=== PATIENT | female | born 1990 | race African-American/Black ===

== ENCOUNTER 2019-10-09 18:45 | Emergency (ER) | payer SELFPAY ==
[2019-10-09 18:58] VITALS: BP 136/77; PULSE 99; RESP 16; TEMP 37.6; O2SAT 100
--- NOTE | 2019-10-09 19:06 | ED.URI ---
HPI - URI/Sore Throat General Chief Complaint: Upper Respiratory Infection Stated Complaint: Sore throat Time Seen by Provider: 10/09/19 19:08 Source: patient and RN notes reviewed History of Present Illness HPI Narrative: Patient is a 28-year-old female presents the urgent care with complaints of sore throat and white patches for 1 day. Patient states that it hurts to swallow. States that she has history of recurrent strep. Patient denies any diagnoses of strep within the last 6 months. Patient has not taken anything [id number] with the exception of cough drops. Currently denies any fever, chills, nausea, vomiting. No other acute complaints. No acute distress noted. Patient aware the plan of care. Related Data Allergies Allergy/AdvReac Type Severity Reaction Status Date / Time No Known Allergies Allergy Verified 10/09/19 19:04 Review of Systems Review of Systems: Narrative: CONSTITUTIONAL: Denies fever, chills, or sweats. EYES: Denies visual changes, redness, or discharge. ENT: Reports of sore throat and white patches CARDIOVASCULAR: Denies chest pain, palpitations, or edema. RESPIRATORY: Denies cough or dyspnea. GASTROINTESTINAL: Denies abdominal pain, nausea, vomiting, or diarrhea. GENITOURINARY: Denies dysuria or hematuria. SKIN: Denies rash or itching. MUSCULOSKELETAL: Denies back pain, joint pain, or myalgia. NEUROLOGIC: Denies headache, numbness, or weakness. All other systems reviewed are negative, except as documented in HPI. PMFSH Social History Social History Gender identity (if verbalized by the patient): Female Comments At the time of my signature, I reviewed and agree with the nursing past medical, surgical, social, and family history. There is no relevant family history pertinent to the patient complaint. Exam Narrative: Exam Narrative: GENERAL: This is a well-nourished, well-developed patient, in no apparent distress. HEAD: normocephalic, atraumatic. EYES: PERRL. Sclera clear/white. Vision is grossly intact. EARS: External ears normal, auditory canals clear and without drainage, TMs normal without perforation. Hearing grossly intact. NOSE: External nose normal with no obvious nasal discharge, nares without redness, no rhinorrhea. THROAT: Mucous membranes moist, moderate erythema noted the posterior oropharynx with mild to moderate bilateral tonsillar edema and erythema with bilateral moderate exudate NECK: Neck supple, non-tender without lymphadenopathy CARDIOVASCULAR: Regular rate and rhythm without murmurs, gallops, or rubs. RESPIRATORY: Clear to auscultation. Breath sounds equal bilaterally. No wheezes, rales, or rhonchi. SKIN: warm, intact with no suspicious lesions or rash, good texture and turgor. NEURO: awake, alert, and oriented to person, place and time. There were no obvious focal neurologic abnormalities. EXTREMITIES: No clubbing, cyanosis, or edema. Course Vital Signs Vital signs: Vital Signs Temperature 99.7 F H 10/09/19 18:58 Pulse Rate 99 10/09/19 18:58 Respiratory Rate 16 10/09/19 18:58 Blood Pressure 136/77 10/09/19 18:58 Pulse Oximetry 100 10/09/19 18:58 Temperature 99.7 F H 10/09/19 18:58 Pulse Rate 99 10/09/19 18:58 Respiratory Rate 16 10/09/19 18:58 Blood Pressure 136/77 10/09/19 18:58 Pulse Oximetry 100 10/09/19 18:58 Reviewed MDM - URI/Sore Throat MDM Narrative Medical decision making narrative: Reviewed lab results with patient. She is aware that her strep swab is negative. However, due to presentation will treat patient for possible strep and tonsillitis. Advised the patient to complete antibiotic regimen as prescribed. Make sure to eat and drink with the medication. Increase fluids and rest. Use Tylenol/ibuprofen as needed. Follow-up with PCP within 2 to 5 days or for worsening symptoms or failure to improve. Differential Diagnosis Differential diagnosis: Likely upper respiratory infection, otitis media, sinusitis, viral i
== END 2019-10-09 19:30 | disposition home or self-care (01) ==
PROVIDERS: Emergency Provider Nurse Practitioner Family
DX: J02.9 Acute pharyngitis, unspecified (principal)
CPT/HCPCS: 87081; 87880; 99213; G0463

== ENCOUNTER 2020-05-13 15:31 | Outpatient (RCR) | payer OTHER, SELFPAY ==
[2020-05-13 16:22] VITALS: BP 128/75; PULSE 69
== END 2020-06-01 12:53 | disposition home or self-care (01) ==
LOC: ANHOBOP 15:31
PROVIDERS: Visit Provider Obstetrics & Gynecology
DX: O24.419 Gestational diabetes mellitus in pregnancy, unspecified control (principal); Z3A.00 Weeks of gestation of pregnancy not specified
CPT/HCPCS: 59025

== ENCOUNTER 2020-05-31 18:22 | Inpatient (IN) | payer OTHER, SELFPAY ==
[2020-05-31] VITALS (30 sets, daily range): BP systolic 88–168; BP diastolic 49–100; PULSE 77–104; TEMP 37
[2020-05-31 16:00] LABS: Creatinine Urine 49.4 mg/dL; Total Protein Urine Random 11 mg/dL
[2020-05-31 16:07] LABS: Add Urine Microscopic? YES; Appearance Urine Clear (Clear); Bacteria Urine Trace /hpf; Bilirubin Urine Negative (Negative); Blood Urine Negative (Negative); Color Urine Straw (Yellow); Glucose Urine UA Negative (Negative); Ketones Urine Negative (Negative); Leukocyte Esterase Ur Trace LEU/UL (NEGATIVE); Nitrate Urine Negative (Negative); Protein Urine Negative (Negative); RBC Urine 0-2 /hpf (0-2); Specific Grav Ur 1.006 (1.001-1.035); Squamous Epithelial Cell Urine Few /hpf (Few); Urobilinogen Urine Negative mg/dL (<2.0); WBC Urine 0-3 /hpf (0-3)
[2020-05-31 16:23] LABS: Basophils Percent Auto 0.3 % (0.2-1.2); Eosinophils Absolute Auto 0.2 K/mm3 (0-0.3); Eosinophils Percent Auto 1.5 % (0-4.4); Hematocrit 40.3 % (37.0-47.0); Hemoglobin 13.1 g/dL (12.0-15.0); Immature Granulocyte Absolute 0.05 K/mm3 (0.00-0.031); Immature Granulocyte Percent A 0.4 % (0-0.5); Immature Platelet Fraction Pct 5.7 % (0.9-11.2); Lymphocytes Absolute Auto 2.45 K/mm3 (0.9-3.2); Lymphocytes Percent Auto 21.5 % (18.3-44.2); Mean Corpuscular HGB Conc 32.5 g/dl (32-36); Mean Corpuscular Hemoglobin 27.2 pg (26-34); Mean Corpuscular Volume 83.8 fl (80-100); Mean Platelet Volume 10.8 fl (7.4-10.4); Monocytes Absolute Auto 0.5 K/mm3 (0.1-0.6); Monocytes Percent Auto 4.5 % (2.6-8.5); Neutrophils Absolute Auto 8.2 K/mm3 (1.3-6.7); Neutrophils Percent Auto 71.8 % (45.5-73.1); Platelet Count Result 204 k/mm3 (150-375); Red Blood Count 4.81 M/mm3 (4.2-5.4); Red Cell Distribution Width 14.1 % (11.5-14.5); White Blood Count 11.4 K/mm3 (4.5-10.0)
[2020-05-31 16:35] LABS: Alanine Aminotransferase 23 U/L (4-35); Albumin Level 3.5 g/dL (3.5-5.1); Alkaline Phosphatase 147 U/L (38-126); Anion Gap 8 mmol/L (8-16); Aspartate Amino Transferase 31 U/L (14-36); Bilirubin,Total 0.5 mg/dL (0.2-1.3); Blood Urea Nitrogen 7 mg/dL (7-17); Calcium 9.1 mg/dL (8.4-10.2); Carbon Dioxide 23 mmol/L (22-30); Chloride 106 mmol/L (98-107); Estimated Glomerular Filt Rate > 60; Glucose 84 mg/dL (65-105); Potassium 4.1 mmol/L (3.4-5.0); Sodium 137 mmol/L (137-145); Uric Acid 5.5 mg/dL (2.5-7.5)
--- NOTE | 2020-05-31 17:42 | PC.NURSE ---
1709- Spoke with Austin Guajardo CNM, reviewed BPS's and labs. Continue to watch BP's until 1800, will come by to see patient and determine plan of care.
--- NOTE | 2020-05-31 18:32 | WPDOBADMIT ---
Obstetrics - Admit Note Admission Note: record reviewed. No pertinent additions to the history and/or any subsequent changes in the physical findings that are not consistent with the expected course of the were found. hx of chtn, labs wnl, asymptomatic, but has had severe range pressures, will induce for preeclampsia discussed with pt and will plan cervadil Additions to the history and/or subsequent changes in the physical findings follow. None.
[2020-05-31] MEDS: DINOPROSTONE 10 MG VAG INSERT VAGINAL (20:34)
[2020-06-01] VITALS (140 sets, daily range): BP systolic 90–177; BP diastolic 47–113; PULSE 51–200; RESP 17; TEMP 36.2–36.7; O2SAT 99–100; BMI 38.7
--- NOTE | 2020-06-01 02:42 | LDADM ---
This patient, Radu Cesar, was admitted to Labor/Delivery/Recovery 106 on 05/31/20 at 18:22. Plans for labor, pain management and were discussed with patient. Patient/family oriented to hospital policies and general routines including ID bracelet, bed and alarms, visiting hours, pain management, procedures, bathroom and other care routines, personal items, smoking policy, room service/diet and guest tray routines, security routines, and visiting hours. Patient/Family are encouraged to report perceived risks to care and to ask questions if they do not understand what they are told or what they should do. See OBIX for further documentation.
[2020-06-01] MEDS: LACTATED RINGERS 1,000 ML 125 ML IV CONT ×2 (05:22→11:06)
[2020-06-01] MEDS: OXYTOCIN 30 UNITS/NS 500 ML 30 UNITS/500 ML BAG 6 UNITS IV CONT (05:23)
--- NOTE | 2020-06-01 08:22 | PM.IMHP ---
H&P: HPI History of Present Illness Date/Time: 06/01/20 08:22 Chief complaint: PIH Narrative: Radu Cesar is a 29 year old female sent over for induction d/t gestational hypertension. Cervidil was placed last night and removed for nrfht. This morning FHR in stable with good variability and occasional late decelerations. Review of Systems Review of Systems: All systems reviewed & are unremarkable except as noted in HPI and below PMFSH Family History Family History Other No pertinent family history Social History Social History Smoking status: Never smoker Second hand tobacco smoke exposure: No Substance use: never Gender identity (if verbalized by the patient): Female Sexual Orientation (if Verbalized by the Patient): Straight or Heterosexual Spiritual care concerns: No Meds Home Medications and Allergies Home Medications Medication Instructions Recorded Confirmed Type PNV cmb#95-ferrous fumarate-FA 1 tablet PO DAILY 05/18/20 05/31/20 History [] Allergies Allergy/AdvReac Type Severity Reaction Status Date / Time No Known Allergies Allergy Verified 10/09/19 19:04 Vital Signs Vital Signs - 24 hr 05/31/20 15:31 05/31/20 16:31 05/31/20 16:47 Temperature Pulse Rate 95 93 104 H Blood Pressure 147/80 H 160/100 H 165/63 H 05/31/20 16:50 05/31/20 16:51 05/31/20 17:01 Temperature Pulse Rate 100 77 91 Blood Pressure 168/85 H 162/88 H 149/81 H 05/31/20 17:16 05/31/20 17:46 05/31/20 18:01 Temperature Pulse Rate 101 H 95 81 Blood Pressure 161/96 H 156/80 H 153/72 H 05/31/20 18:16 05/31/20 18:31 05/31/20 18:46 Temperature Pulse Rate 89 85 79 Blood Pressure 141/81 H 149/78 H 141/74 H 05/31/20 19:01 05/31/20 19:16 05/31/20 19:31 Temperature Pulse Rate 85 78 87 Blood Pressure 140/74 140/64 124/57 L 05/31/20 19:46 05/31/20 20:37 05/31/20 20:52 Temperature 98.6 F Pulse Rate 89 99 Blood Pressure 114/65 141/81 H 05/31/20 21:01 05/31/20 21:16 05/31/20 21:46 Temperature Pulse Rate 97 104 H 102 H Blood Pressure 141/76 H 134/74 88/68 L 05/31/20 21:49 05/31/20 22:01 05/31/20 22:16 Temperature Pulse Rate 100 97 93 Blood Pressure 119/66 119/58 L 119/55 L 05/31/20 22:41 05/31/20 22:46 05/31/20 23:01 Temperature Pulse Rate 88 87 98 Blood Pressure 132/74 136/70 112/63 05/31/20 23:16 05/31/20 23:31 05/31/20 23:46 Temperature Pulse Rate 84 87 78 Blood Pressure 128/79 123/49 L 127/70 06/01/20 00:01 06/01/20 00:16 06/01/20 00:32 Temperature Pulse Rate 85 156 H 81 Blood Pressure 125/71 106/89 129/75 06/01/20 00:45 06/01/20 01:01 06/01/20 01:16 Temperature 97.8 F Pulse Rate 86 86 Blood Pressure 112/51 L 100/48 L 06/01/20 01:31 06/01/20 01:46 06/01/20 02:01 Temperature Pulse Rate 90 87 84 Blood Pressure 95/58 L 112/51 L 90/60 L 06/01/20 02:16 06/01/20 02:46 06/01/20 03:01 Temperature Pulse Rate 90 79 81 Blood Pressure 116/55 L 94/49 L 112/50 L 06/01/20 03:16 06/01/20 03:31 06/01/20 03:46 Temperature Pulse Rate 79 79 84 Blood Pressure 120/61 110/47 L 114/64 06/01/20 04:01 06/01/20 04:16 06/01/20 04:31 Temperature Pulse Rate 82 81 78 Blood Pressure 113/55 L 107/54 L 122/50 L 06/01/20 04:46 06/01/20 05:01 06/01/20 05:16 Temperature Pulse Rate 76 101 H 79 Blood Pressure 122/56 L 102/71 116/66 06/01/20 05:31 06/01/20 05:46 06/01/20 06:01 Temperature Pulse Rate 90 91 95 Blood Pressure 116/55 L 124/61 130/63 06/01/20 06:15 06/01/20 06:16 06/01/20 06:31 Temperature 97.2 F L Pulse Rate 97 90 Blood Pressure 127/58 L 133/71 06/01/20 07:01 06/01/20 07:31 06/01/20 08:14 Temperature Pulse Rate 90 90 88 Blood Pressure 122/72 119/56 L 147/79 H Exam Const: General: comfortable and no acute distress Resp: Effor
[2020-06-01 08:53] LABS: Rapid Plasma Reagin Non-Reactive (NonReactive)
--- NOTE | 2020-06-01 11:03 | WPDANESEPP ---
Anes - Eval Pre Procedure Procedure: labor epidural Date/Time: 06/01/20 11:03 Surgeon: sisi Preop Diagnosis: pain during labor Pre Op Diagnosis: PIH Patient Data Age: 29 Gender: F Height: Weight: Last Vital Signs Temp 36.4 C L 06/01/20 10:51 Pulse 76 06/01/20 11:01 BP 131/65 06/01/20 11:01 Pulse Ox 99 06/01/20 11:00 Allergies Allergy/AdvReac Type Severity Reaction Status Date / Time No Known Allergies Allergy Verified 10/09/19 19:04 Home Medications Medication Instructions Recorded Confirmed Type PNV cmb#95-ferrous fumarate-FA 1 tablet PO DAILY 05/18/20 05/31/20 History [] Laboratory Tests 05/31/20 05/31/20 05/31/20 15:38 15:38 15:38 WBC 11.4 K/mm3 H K/mm3 (4.5-10.0) RBC 4.81 M/mm3 M/mm3 (4.2-5.4) Hgb 13.1 g/dL g/dL (12.0-15.0) Hct 40.3 % % (37.0-47.0) MCV 83.8 fl fl (80-100) MCH 27.2 pg pg (26-34) MCHC 32.5 g/dl g/dl (32-36) RDW 14.1 % % (11.5-14.5) Plt Count 204 k/mm3 k/mm3 (150-375) MPV 10.8 fl H fl (7.4-10.4) Immature Gran % (Auto) 0.4 % % (0-0.5) Neut % (Auto) 71.8 % % (45.5-73.1) Lymph % (Auto) 21.5 % % (18.3-44.2) Sharp % (Auto) 4.5 % % (2.6-8.5) Eos % (Auto) 1.5 % % (0-4.4) Baso % (Auto) 0.3 % % (0.2-1.2) Lymph # (Auto) 2.45 K/mm3 K/mm3 (0.9-3.2) Sharp # (Auto) 0.5 K/mm3 K/mm3 (0.1-0.6) Eos # (Auto) 0.2 K/mm3 K/mm3 (0-0.3) Baso # (Auto) 0.0 K/mm3 K/mm3 (0.0-0.1) Abs Immat Gran (auto) 0.05 K/mm3 H K/mm3 (0.00-0.031) Absolute Neuts (auto) 8.2 K/mm3 H K/mm3 (1.3-6.7) Absolute Nucleated RBC 0.0 K/mm3 K/mm3 (0.0-0.012) Nucleated RBC % 0.0 % % (0.0-0.2) % Immature Plt Fraction 5.7 % % (0.9-11.2) Sodium Potassium Chloride Carbon Dioxide Anion Gap BUN Creatinine Estim Creat Clear Calc Estimated GFR Glucose Uric Acid Calcium Total Bilirubin AST ALT Alkaline Phosphatase Total Protein Albumin Urine Color Straw (Yellow) Urine Appearance Clear (Clear) Urine pH 6.0 (5.0-9.0) Ur Specific [place] 1.006 (1.001-1.035) Urine Protein Negative mg/dL mg/dL (Negative) Urine Glucose (UA) Negative mg/dL mg/dL (Negative) Urine Ketones Negative mg/dL mg/dL (Negative) Ur Blood (Man) Negative (Negative) Urine Nitrate Negative (Negative) Urine Bilirubin Negative (Negative) Urine Urobilinogen Negative mg/dL mg/dL (<2.0) Ur Leukocyte Esterase Trace ADY/UL H ADY/UL (NEGATIVE) Urine RBC 0-2 /hpf /hpf (0-2) Urine WBC 0-3 /hpf /hpf (0-3) Ur Squamous Epith Cells Few /hpf /hpf (Few) Urine Bacteria Trace /hpf /hpf U Random Total Protein 11 mg/dL mg/dL Urine Creatinine 49.4 mg/dL mg/dL RPR Blood Type Antibody Screen 05/31/20 05/31/20 05/31/20 15:38 20:26 20:26 WBC RBC Hgb Hct MCV MCH MCHC RDW Plt Count MPV Immature Gran % (Auto) Neut % (Auto) Lymph % (Auto) Sharp % (Auto) Eos % (Auto) Baso % (Auto) Lymph # (Auto) Sharp # (Auto) Eos # (Auto) Baso # (Auto) Abs Immat Gran (auto) Absolute Neuts (auto) Absolute Nucleated RBC Nucleated RBC % % Aneglita
--- NOTE | 2020-06-01 15:45 | PM.OBPRVD ---
OB - Delivery Note Procedure Delivery date: 06/01/20 events: Induced HTN and Meconium Stained Fluid Intrapartal events: None Induction method: per cervidil protocol Delivery monitor: external FHT, external uterine, internal FHT and internal uterine Route of delivery: Episiotomy description: None Laceration Description: Vaginal - 1st Degree and Labial (1st degree right labial) Delivery repair: vicryl Specimen: Yes Estimated blood loss (mL): 122 Anesthesia type: Epidural Narrative: Delivery per Z. Due SNM. Peds present for delivery. vigorous at delivery. Cord was clamped and cut and handed off to staff d/t pt request. Cord gasses collected and handed off to staff. Minimal arterial and 1cc venous. [place] Baby Date of : 06/01/20 Time of : 15:18 Weeks of gestation at delivery: 37 Infant gender: Male Weight (pounds): 5 Weight (ounces): 2 presentation: vertex position: Left Occiput Anterior Placenta delivery description: Spontaneous and Abnormal Configuration cord vessel description: 3 Vessels score one minute: 9 score five minutes: 9
[2020-06-01] MEDS: OXYTOCIN 30 UNITS/NS 500 ML 30 UNITS/500 ML BAG 125 UNITS IV CONT (16:11)
[2020-06-01] MEDS: OXYTOCIN 30 UNITS/NS 500 ML 30 UNITS/500 ML BAG 999 UNITS IV CONT (16:12)
[2020-06-01] MEDS: IBUPROFEN 600 MG TABLET PO (18:58)
[2020-06-01] MEDS: WITCH HAZEL 40 PADS 1 PAD TOPICAL (18:59)
[2020-06-01] MEDS: BENZOCAINE 20% AER SPR (*SP) 56 GM CAN 1 SPRAY TOPICAL (18:59)
--- NOTE | 2020-06-01 19:21 | OBPPTRN ---
Patient transferred to post room #285 via wheelchair with in crib. Support person present. Oriented to unit, room, information board, rooming in, admission packet and security measures. Patient verbalizes understanding.
[2020-06-02 05:30] LABS: Hemoglobin 9.3 g/dL (12.0-15.0)
--- NOTE | 2020-06-02 07:30 | WPDANLDPN2 ---
Anes-Prog Note L&D Date/Time: 06/02/20 07:30 Comfortable throughout: labor and delivery Neuraxial method: epidural Epidural/Spinal procedure site: clean & non-tender Neuro status: Neuro function grossly intact. Cardiovascular status: normal Respiratory status: normal Airway patency: baseline Mental status: baseline Post-Op hydration status: normal Vital Signs: Last Vital Signs Temp 36.7 C 06/01/20 19:35 Pulse 90 06/01/20 19:35 Resp 17 06/01/20 19:35 BP 131/79 06/01/20 19:35 Pulse Ox 100 06/01/20 15:00 Pain score (VAS): 08/07 I/O: Intake & Output 06/01/20 06/01/20 06/02/20 15:59 23:59 07:59 Intake Total 1000 500 Output Total 55 Balance 1000 500 -55 Post-procedural complaints: none Patient feedback: Patient satisfied with anesthetic care.
[2020-06-02 07:50] VITALS: BP 121/56; PULSE 92; RESP 16; TEMP 36.4; O2SAT 98
--- NOTE | 2020-06-02 08:00 | PC.NURSE ---
PT introductions made and plan of care discussed per post , pain management, bottle feeding, daily care activities. PT verbalized understanding of such care.
--- NOTE | 2020-06-02 08:09 | PM.OBPNVD ---
OB - PN: Subj Subjective Date/time seen: 06/02/20 08:09 Patient comments: no complaints baby status: doing well OB - PN: Obj Data Labs CBC & Chem 7: 06/02/20 05:23 05/31/20 15:38 Labs: Laboratory Results - last 24 hr 05/31/20 06/02/20 20:26 05:23 Hgb 9.3 L D Hct 29.0 L RPR Non-reactive OB - PN A/P Plan day: 1 Plan: routine care Time Spent With Patient Time: Total time spent is greater than 50% in coordination of care (as documented) at patient's floor/unit and/or counseling patient: Time with patient: less than 15 minutes Review of Systems Review of Systems: All systems reviewed & are unremarkable except as noted in HPI and below Exam Narrative: Exam Narrative: Fundus firm and vaginal flow controlled. No lower ext redness, warmth, or edema. Negative homans. Denies h/a, v/d or e/p. Reflexes normal. Const: General: comfortable Chest: Breast/axilla inspection: normal inspection of the breasts Resp: Effort & Inspection: normal respiratory effort Cardio: Rate: regular rate GI: GI Palp: Yes Soft to palpation Psych: Appearance: grossly normal Affect: normal affect Attitude: cooperative Thought content: Yes Normal thought content present Judgement: Good judgement present (Psych)
[2020-06-02 10:30] VITALS: PULSE 92; RESP 16; O2SAT 98
[2020-06-02] MEDS: DOCUSATE SODIUM 100 MG CAPSULE PO ×2 (10:36→17:04)
[2020-06-02] MEDS: POLYSACCHARIDE IRON COMPLEX 150 MG CAPSULE PO ×2 (10:37→17:04)
[2020-06-02] MEDS: MULTIVIT/MIN/PREN/FOL AC/IRON TABLET 1 TAB PO (10:37)
[2020-06-02] MEDS: IBUPROFEN 600 MG TABLET PO ×2 (10:37→17:03)
[2020-06-02] MEDS: ACETAMINOPHEN 325 MG TABLET 650 MG PO ×2 (10:38→17:03)
--- NOTE | 2020-06-02 17:45 | PC.NURSE ---
Patient viewed the discharge video Mother & Baby Care, The First Two Weeks . Patient was given the opportunity and encouraged to ask questions. Patient verbalized understanding of information shared and has been given the mother/baby guide for home reference.
[2020-06-02 20:10] VITALS: BP 140/86; PULSE 93; RESP 16; TEMP 36.7
[2020-06-03] MEDS: IBUPROFEN 600 MG TABLET PO (03:10)
[2020-06-03] MEDS: ACETAMINOPHEN 325 MG TABLET 650 MG PO (03:10)
--- NOTE | 2020-06-03 07:39 | PM.OBPNVD ---
OB - PN: Subj Subjective Date/time seen: 06/03/20 07:39 Patient comments: no complaints baby status: doing well OB - PN: Obj Data Labs CBC & Chem 7: 06/02/20 05:23 05/31/20 15:38 OB - PN A/P Plan day: 2 Plan: routine care and discharge home Time Spent With Patient Time: Total time spent is greater than 50% in coordination of care (as documented) at patient's floor/unit and/or counseling patient: Exam Const: General: cooperative Psych: Thought process: Normal thought process present Judgement: Good judgement present (Psych)
--- NOTE | 2020-06-03 07:41 | PM.OBDSVD ---
DS: Admitting Diagnosis Admitting Diagnosis Admitting Diagnosis: [facility] OB - DS: Summary OB Procedures : None OB Procedures Intrapartum: Spontaneous Vag Delivery OB Procedures: : None Time Spent with Patient Time attestation: Total time spent providing and/or coordinating discharge services: DS: Data Data Completed and Pending Pending studies at discharge: Pending at discharge 06/01/20 16:41 Surgical [PTH] Routine Discharge Plan Discharge Attending physician on discharge: Allison Arroyo Discharging Clinician: Consuelo Guajardo Patient Disposition: Home, Self-Care Activity: pelvic rest Diet: regular Patient Instructions: Antibiotic Form Stand Alone Forms: General Discharge Information Follow-up/Referrals: Patricia Peña CNM [Certified Nurse [employer] Dress Belt Maker] - 4 Weeks Consuelo Guajardo CNM [Certified Nurse [employer] Dress Belt Maker] - Discharge Medications: Continued PNV cmb#95-ferrous fumarate-FA [] 28 mg iron- 800 mcg Tablet 1 tablet PO DAILY RF: 0 Date of admission: 05/31/20 18:22 Primary Care Provider: UNKNOWN,DOCTOR Admitting Provider: Allison Arroyo Attending physician on admission: Allison Arroyo Condition: Stable
[2020-06-03 07:55] VITALS: BP 153/81; PULSE 92; RESP 16; TEMP 36.4; O2SAT 99
[2020-06-03] MEDS: BENZOCAINE 20% AER SPR (*SP) 56 GM CAN 1 SPRAY TOPICAL (08:23)
[2020-06-03] MEDS: WITCH HAZEL 40 PADS 1 PAD TOPICAL (08:23)
[2020-06-03] MEDS: POLYSACCHARIDE IRON COMPLEX 150 MG CAPSULE PO (08:23)
[2020-06-03] MEDS: DOCUSATE SODIUM 100 MG CAPSULE PO (08:23)
[2020-06-04 09:38] VITALS: BP 143/83; PULSE 92; RESP 20; TEMP 36.6; O2SAT 100
== END 2020-06-03 12:00 | disposition home or self-care (01) | DRG 560 ==
LOC: ANHOBOP 18:22 → ANHLDR 18:22 → ANHOB2 06-01 19:54
PROVIDERS: Advanced Practice Midwife; Admitting Provider Obstetrics & Gynecology; Visit Provider Obstetrics & Gynecology
DX: O11.4 Pre-existing hypertension with pre-eclampsia, complicating childbirth (principal); Z37.0 Single live birth; Z3A.37 37 weeks gestation of pregnancy; O36.8330 Maternal care for abnormalities of the fetal heart rate or rhythm, third trimester, not applicable or unspecified; O70.1 Second degree perineal laceration during delivery; O99.214 Obesity complicating childbirth; E66.01 Morbid (severe) obesity due to excess calories; O77.0 Labor and delivery complicated by meconium in amniotic fluid
CPT/HCPCS: 36415; 80053; 81001; 82570; 84156; 84550; 85014; 85018; 85025; 85055; 86592; 86850; 86900; 86901; 87086; 88307; A9270; J2590; J2795; J7120

== ENCOUNTER 2021-07-04 10:02 | Outpatient (CLI) | payer OTHER, SELFPAY ==
[2021-07-04] VITALS (7 sets, daily range): BP systolic 136–150; BP diastolic 49–72; PULSE 88–105
[2021-07-04 10:58] LABS: Basophils Percent Auto 0.4 % (0.2-1.2); Eosinophils Absolute Auto 0.2 K/mm3 (0-0.3); Eosinophils Percent Auto 1.5 % (0-4.4); Hematocrit 35.1 % (37.0-47.0); Hemoglobin 11.5 g/dL (12.0-15.0); Immature Granulocyte Absolute 0.12 K/mm3 (0.00-0.031); Immature Granulocyte Percent A 1.1 % (0-0.5); Lymphocytes Absolute Auto 2.11 K/mm3 (0.9-3.2); Lymphocytes Percent Auto 19.1 % (18.3-44.2); Mean Corpuscular HGB Conc 32.8 g/dl (32-36); Mean Corpuscular Hemoglobin 27.8 pg (26-34); Mean Corpuscular Volume 84.8 fl (80-100); Mean Platelet Volume 10.5 fl (7.4-10.4); Monocytes Absolute Auto 0.5 K/mm3 (0.1-0.6); Monocytes Percent Auto 4.4 % (2.6-8.5); Neutrophils Absolute Auto 8.1 K/mm3 (1.3-6.7); Neutrophils Percent Auto 73.5 % (45.5-73.1); Platelet Count Result 253 k/mm3 (150-375); Red Blood Count 4.14 M/mm3 (4.2-5.4); Red Cell Distribution Width 15.5 % (11.5-14.5)
[2021-07-04 11:14] LABS: Add Urine Microscopic? YES; Appearance Urine Clear (Clear); Bilirubin Urine Negative (Negative); Blood Urine Negative (Negative); Color Urine Straw (Yellow); Glucose Urine UA Negative (Negative); Ketones Urine Negative (Negative); Leukocyte Esterase Ur Trace LEU/UL (NEGATIVE); Nitrate Urine Negative (Negative); Protein Urine Negative (Negative); RBC Urine 0-2 /hpf (0-2); Squamous Epithelial Cell Urine Rare /hpf (Few); Urobilinogen Urine Negative mg/dL (<2.0); WBC Urine 0-3 /hpf (0-3)
[2021-07-04 11:17] LABS: Alanine Aminotransferase 17 U/L (4-35); Albumin Level 3.6 g/dL (3.5-5.1); Alkaline Phosphatase 131 U/L (38-126); Anion Gap 8 mmol/L (8-16); Aspartate Amino Transferase 26 U/L (14-36); Bilirubin,Total 0.4 mg/dL (0.2-1.3); Blood Urea Nitrogen 6 mg/dL (7-17); Calcium 8.7 mg/dL (8.4-10.2); Carbon Dioxide 23 mmol/L (22-30); Chloride 101 mmol/L (98-107); Estimated Glomerular Filt Rate > 60; Glucose 96 mg/dL (65-110); Potassium 3.6 mmol/L (3.4-5.0); Sodium 132 mmol/L (137-145); Uric Acid 4.9 mg/dL (2.5-7.5)
--- NOTE | 2021-07-04 11:45 | PC.NURSE ---
Waiting for urine results to come back.
[2021-07-04 12:01] LABS: Specific Grav Ur 1.001 (1.001-1.035)
--- NOTE | 2021-07-04 12:03 | PC.NURSE ---
Called Dadnre Peña CNM with lab results, BPs and FHTs. Orders received to start 24hr urine and follow up in office on Saturday.
[2021-07-04 12:26] LABS: Creatinine Urine 18.9 mg/dL; Total Protein Urine Random 13 mg/dL; Ur Ttl Prot Creatinine Ratio 0.69 mg/mg (0-0.20)
== END 2021-07-04 12:18 | disposition home or self-care (01) ==
LOC: ANHOBOP 10:12 → ANHOBPP 10:13
PROVIDERS: Advanced Practice Midwife; Visit Provider Obstetrics & Gynecology
DX: O13.5 Gestational [pregnancy-induced] hypertension without significant proteinuria, complicating the puerperium (principal)
CPT/HCPCS: 36415; 80053; 81001; 82570; 84156; 84550; 85025; 87086; 99199

== ENCOUNTER 2021-07-05 13:55 | Outpatient (CLI) | payer OTHER, SELFPAY ==
[2021-07-05 17:14] LABS: Collection Time Urine 24 HOURS
[2021-07-05 17:16] LABS: Patient Weight 282 Lbs; Total Volume 24 Hour Urine 1600 ml
[2021-07-05 17:21] LABS: Total Volume 24 Hour Urine 1600 ml
[2021-07-05 17:27] LABS: Creatinine Clearance Urine 147.8 ml/min (75-125); Creatinine Urine 106.4 mg/dL
[2021-07-05 18:02] LABS: Total Protein Urine Random < 5 mg/dL
[2021-07-05 18:03] LABS: Total Protein Urine 24 Hr 80 mg/24hr (28-141)
== END 2021-07-05 13:56 | disposition home or self-care (01) ==
LOC: ANHOBOP 14:59
PROVIDERS: Visit Provider Advanced Practice Midwife
DX: O13.9 Gestational [pregnancy-induced] hypertension without significant proteinuria, unspecified trimester (principal)
CPT/HCPCS: 81050; 82575; 84156

== ENCOUNTER 2021-09-21 07:00 | Inpatient (IN) | payer OTHER, SELFPAY ==
[2021-09-21] VITALS (50 sets, daily range): BP systolic 74–138; BP diastolic 32–110; PULSE 33–112; RESP 12–17; TEMP 36–37.1; O2SAT 77–100; BMI 47.8
[2021-09-21 07:30] LABS: Basophils Percent Auto 0.3 % (0.2-1.2); Eosinophils Absolute Auto 0.2 K/mm3 (0-0.3); Eosinophils Percent Auto 1.9 % (0-4.4); Hematocrit 37.2 % (37.0-47.0); Hemoglobin 12.3 g/dL (12.0-15.0); Immature Granulocyte Absolute 0.09 K/mm3 (0.00-0.031); Immature Granulocyte Percent A 0.8 % (0-0.5); Lymphocytes Absolute Auto 2.85 K/mm3 (0.9-3.2); Lymphocytes Percent Auto 25.8 % (18.3-44.2); Mean Corpuscular HGB Conc 33.1 g/dl (32-36); Mean Corpuscular Hemoglobin 28.7 pg (26-34); Mean Corpuscular Volume 86.7 fl (80-100); Mean Platelet Volume 10.4 fl (7.4-10.4); Monocytes Absolute Auto 0.5 K/mm3 (0.1-0.6); Monocytes Percent Auto 4.8 % (2.6-8.5); Neutrophils Absolute Auto 7.4 K/mm3 (1.3-6.7); Neutrophils Percent Auto 66.4 % (45.5-73.1); Platelet Count Result 243 k/mm3 (150-375); Red Blood Count 4.29 M/mm3 (4.2-5.4); Red Cell Distribution Width 14.6 % (11.5-14.5); White Blood Count 11.1 K/mm3 (4.5-10.0)
--- NOTE | 2021-09-21 07:35 | LDADM ---
This patient, Radu Cesar, was admitted to Labor/Delivery/Recovery 120 on 09/21/21 at 07:00. Plans for labor, pain management and were discussed with patient. Patient/family oriented to hospital policies and general routines including ID bracelet, bed and alarms, visiting hours, pain management, procedures, bathroom and other care routines, personal items, smoking policy, room service/diet and guest tray routines, security routines, and visiting hours. Patient/Family are encouraged to report perceived risks to care and to ask questions if they do not understand what they are told or what they should do. See OBIX for further documentation.
[2021-09-21 07:48] LABS: Alanine Aminotransferase 16 U/L (4-35); Albumin Level 3.4 g/dL (3.5-5.1); Alkaline Phosphatase 203 U/L (38-126); Anion Gap 5 mmol/L (8-16); Aspartate Amino Transferase 32 U/L (14-36); Bilirubin,Total 0.7 mg/dL (0.2-1.3); Blood Urea Nitrogen 7 mg/dL (7-17); Calcium 8.7 mg/dL (8.4-10.2); Carbon Dioxide 21 mmol/L (22-30); Chloride 108 mmol/L (98-107); Estimated CRCL calculation 166 ml/min; Estimated Glomerular Filt Rate > 60; Glucose 93 mg/dL (65-110); Potassium 3.8 mmol/L (3.4-5.0); Sodium 134 mmol/L (137-145); Uric Acid 5.4 mg/dL (2.5-7.5)
[2021-09-21] MEDS: LACTATED RINGERS 1,000 ML 125 ML IV CONT ×2 (07:57→11:12)
--- NOTE | 2021-09-21 07:58 | PM.IMHP ---
H&P: HPI History of Present Illness Date/Time: 09/21/21 07:58 This patient is a 30-year-old multiparous female at 38 weeks gestation who presents for delivery for twins. First twin is breech. Patient understands the risk of . She understands that injuries may occur that result in hospitalization, more surgery, severe illness. She understands risk of infection and hemorrhage. Chief Complaint: Term twin gestation Review of Systems Review of Systems: All systems reviewed & are unremarkable except as noted in HPI and below Constitutional: Constitutional: Denies chills, Denies fatigue, Denies fever(s) and Denies weakness Eyes: Eyes: Denies blurry vision, Denies change in vision, Denies loss of peripheral vision, Denies loss of vision, Denies other visual disturbances and Denies eye pain ENT: Denies vertigo, Denies dizziness, Denies hearing loss, Denies mouth pain, Denies nasal obstruction, Denies neck mass and Denies neck pain Cardiovascular: Cardiovascular: Denies chest pain, Denies diaphoresis, Denies syncope, Denies leg edema and Denies dyspnea Respiratory: Respiratory: Denies chest congestion, Denies cough, Denies hemoptysis, Denies dyspnea and Denies wheezing Gastrointestinal: Gastrointestinal: Denies abdominal pain, Denies constipation, Denies diarrhea, Denies nausea and Denies vomiting Genitourinary: Genitourinary: Denies hematuria, Denies change in libido, Denies nocturia, Denies genital lesions, Denies flank pain and Denies urinary urgency Musculoskeletal: Musculoskeletal: Denies abnormal gait, Denies back pain, Denies myalgias, Denies arthralgias, Denies joint swelling, Denies muscle weakness and Denies neck pain Integumentary/Breasts: Skin/Breast: Denies swelling, Denies breast pain, Denies breast mass, Denies dry skin, Denies nipple discharge, Denies unusual bruising and Denies jaundice Neurologic: Denies Neuro-related abnormal movements, Denies Abnormal speech present, Denies abnormal gait, Denies behavioral changes, Denies confusion, Denies vertigo, Denies dizziness, Denies syncope, Denies loss of vision, Denies memory loss, Denies convulsions and Denies weakness Psychiatric: Psychiatric: Denies abnormal sleep pattern, Denies behavioral changes, Denies change in libido, Denies confusion, Denies depression, Denies anhedonia and Denies memory loss Endocrine: Endocrine: Reports no additional endocrine complaints, Denies change in libido and Denies fatigue Hematologic/Lymphatic: Hematologic/Lymphatic: Reports no additional hematologic/lymphatic complaints Allergic/Immunologic: Allergic/Immunologic: Reports no additional allergic/immunologic complaints and Denies wheezing PMF Past Medical History Medical History (Updated 09/21/21 @ 08:00 by Allison Arroyo MD) Morbid obesity PIH ( induced hypertension) Family History Family History Other No pertinent family history Social History Social History Smoking status: Never smoker Second hand tobacco smoke exposure: No Substance use: never Gender identity (if verbalized by the patient): Female Sexual Orientation (if Verbalized by the Patient): Straight or Heterosexual Spiritual care concerns: No Meds Home Medications and Allergies Home Medications Medication Instructions Recorded Confirmed Type PNV cmb#95-ferrous fumarate-FA 1 tablet PO DAILY 05/18/20 05/31/20 History [] Allergies Allergy/AdvReac Type Severity Reaction Status Date / Time No Known Allergies Allergy Verified 10/09/19 19:04 Vital Signs Vital Signs - 24 hr 09/21/21 07:36 09/21/21 07:45 Pulse Rate 99 92 Blood Pressure 125/61 118/69 Exam Const: General: cooperative, healthy appearing, comfortable and no acute distress; No confusion Orientation/consciousness: oriented to person, oriented to place, oriented
--- NOTE | 2021-09-21 11:11 | WPDANESEPPF ---
Anes - Initial Pre Proc Eval Procedure: Operation Date: 09/21/21 12:00 Proposed Procedures p Section - Allison Arroyo MD Date/Time: 09/21/21 11:11 Surgeon: Allison Arroyo MD Pre Op Diagnosis: C/S TWINS Patient Data Age: 30 Gender: F Height: 1.68 m Weight: 134.5 kg Last Vital Signs Temp 37.1 C 09/21/21 08:00 Pulse 77 09/21/21 08:31 BP 112/47 L 09/21/21 08:31 Allergies Allergy/AdvReac Type Severity Reaction Status Date / Time No Known Allergies Allergy Verified 10/09/19 19:04 Home Medications Medication Instructions Recorded Confirmed Type PNV cmb#95-ferrous fumarate-FA 1 tablet PO DAILY 05/18/20 05/31/20 History [] Laboratory Tests 09/21/21 09/21/21 09/21/21 07:22 07:22 07:22 WBC 11.1 K/mm3 H K/mm3 (4.5-10.0) RBC 4.29 M/mm3 M/mm3 (4.2-5.4) Hgb 12.3 g/dL g/dL (12.0-15.0) Hct 37.2 % % (37.0-47.0) MCV 86.7 fl fl (80-100) MCH 28.7 pg pg (26-34) MCHC 33.1 g/dl g/dl (32-36) RDW 14.6 % H % (11.5-14.5) Plt Count 243 k/mm3 k/mm3 (150-375) MPV 10.4 fl fl (7.4-10.4) Immature Gran % (Auto) 0.8 % H % (0-0.5) Neut % (Auto) 66.4 % % (45.5-73.1) Lymph % (Auto) 25.8 % % (18.3-44.2) Frio % (Auto) 4.8 % % (2.6-8.5) Eos % (Auto) 1.9 % % (0-4.4) Baso % (Auto) 0.3 % % (0.2-1.2) Lymph # (Auto) 2.85 K/mm3 K/mm3 (0.9-3.2) Frio # (Auto) 0.5 K/mm3 K/mm3 (0.1-0.6) Eos # (Auto) 0.2 K/mm3 K/mm3 (0-0.3) Baso # (Auto) 0.0 K/mm3 K/mm3 (0.0-0.1) Abs Immat Gran (auto) 0.09 K/mm3 H K/mm3 (0.00-0.031) Absolute Neuts (auto) 7.4 K/mm3 H K/mm3 (1.3-6.7) Absolute Nucleated RBC 0.0 K/mm3 K/mm3 (0.0-0.012) Nucleated RBC % 0.0 % % (0.0-0.2) Sodium Potassium Chloride Carbon Dioxide Anion Gap BUN Creatinine Estim Creat Clear Calc Estimated GFR Glucose Uric Acid Calcium Total Bilirubin AST ALT Alkaline Phosphatase Total Protein Albumin RPR Pending Blood Type O Positive Antibody Screen Negative 09/21/21 09/21/21 07:22 07:22 WBC RBC Hgb Hct MCV MCH MCHC RDW Plt Count MPV Immature Gran % (Auto) Neut % (Auto) Lymph % (Auto) Frio % (Auto) Eos % (Auto) Baso % (Auto) Lymph # (Auto) Frio # (Auto) Eos # (Auto) Baso # (Auto) Abs Immat Gran (auto) Absolute Neuts (auto) Absolute Nucleated RBC Nucleated RBC % Sodium 134 mmol/L L mmol/L (137-145) Potassium 3.8 mmol/L mmol/L (3.4-5.0) Chloride 108 mmol/L H mmol/L (98-107) Carbon Dioxide 21 mmol/L L mmol/L (22-30) Anion Gap 5 mmol/L L mmol/L (8-16) BUN 7 mg/dL mg/dL (7-17) Creatinine 0.60 mg/dL L mg/dL (0.7-1.0) Estim Creat Clear Calc 166 ml/min ml/min Estimated GFR > 60 (59 - ) Glucose 93 mg/dL mg/dL (65-110) Uric Acid 5.4 mg/dL mg/dL Cancelled (2.5-7.5) Calcium 8.7 mg/dL mg/dL (8.4-10.2) Total Bilirubin 0.7 mg/dL mg/dL (0.2-1.3) AST 32 U/L U/L (14-36) ALT 16 U/L U/L (4-35) Alkaline Phosphatase 203 U/L H U/L (38-126) Total Protein 7.0 g/dL g/dL (6.3-8.2) Albumin 3.4 g/dL L g/dL (3.5-5.1) RPR Blood Type Antibody Screen Patient hx anesthesia problems: none Family hx anesthesia problems: none Results Review: All pr
[2021-09-21] MEDS: ceFAZolin 3 GM/D5W 100 ML 100 ML IVPB (12:15)
--- NOTE | 2021-09-21 13:18 | W.PM.PROC2 ---
Procedure Note - Detailed Date of Procedure 09/21/21 Pre-op Diagnosis C/S TWINS -Term Post-op Diagnosis same Procedure Performed Low-transverse section Surgeon Allison Arroyo MD Anesthesia spinal Indications Term twins Findings Normal gestational maternal anatomy, average size infant, normal Apgars. x2 Description of Procedure The patient was taken the operating room. She was prepped and draped in dorsal supine position with a leftward tilt. This was done after spinal anesthetic was applied. A low-transverse skin incision was made and carried down till of the fascia with the knife. The fascial incision was made with the knife. The fascial incision was extended laterally with Blackwell scissors. The fascia was tented upward superiorly and inferiorly the rectus muscles were dissected off bluntly. The rectus muscles were the midline. The preperitoneal fat and peritoneum were dissected open bluntly at the superior aspect of the rectus muscles. The peritoneal incision was extended superior and inferior with good position of bladder. The uterine incision was made with a scalpel down to the level of the amniotic cavity. The amniotic cavity was entered bluntly. The infant- A was delivered. The cord was clamped and cut and the was handed off to waiting pediatric staff. Cord bloods were obtained. The placenta was removed manually. baby was delivered. Cord was clamped and cut and the was handed off to the pediatric staff. The 1st baby delivered breech with no obstruction. The uterus was exteriorized. The uterus was cleared of all clots, debris and membranes. The uterus was closed in 0 Vicryl running lock fashion. An imbricating over a was placed along the incision line as well. The uterus was returned to the abdomen. The gutters were cleared of all clots and debris. The fascia was closed with 0 Vicryl running fashion. The subcutaneous tissue was irrigated pinpoint bleeders were cauterized. The skin was closed with subcuticular absorbable karine. The skin incision line was covered with glue. The patient tolerated the procedure well. She has taken recovery room in stable condition. Sponge lap and needle counts were correct x2. Complications No immediate complications Condition stable Disposition PACU
[2021-09-21] MEDS: OXYTOCIN 30 UNITS/NS 500 ML 30 UNITS/500 ML BAG 125 UNITS IV CONT (13:42)
--- NOTE | 2021-09-21 15:38 | SUR.PHASEI ---
1502--Pt. sitting up, vomited 100cc yellow/green liquid emesis. Pt. had just sat up to hold baby when she started to feel nauseated.
[2021-09-21] MEDS: MORPHINE SULFATE INJ (*CRX) 10 MG/ML AMP 3 MG IV PUSH (15:43)
[2021-09-21] MEDS: KETOROLAC 30 MG/ML VIAL (*BKC) IV PUSH (15:43)
--- NOTE | 2021-09-21 17:01 | OBPPTRN ---
Patient transferred to post room #277 via stretcher from L&D with baby A and baby B in cribs. Support person present. Oriented to unit, room, information board, rooming in and security measures. Patient verbalizes understanding. Pt and support person trying to sleep. Call light within reach.
[2021-09-22] VITALS (7 sets, daily range): BP systolic 123–148; BP diastolic 56–78; PULSE 73–100; RESP 16–18; TEMP 36.2–37.5; O2SAT 99–100
[2021-09-22 05:32] LABS: Basophils Percent Auto 0.3 % (0.2-1.2); Eosinophils Absolute Auto 0.1 K/mm3 (0-0.3); Eosinophils Percent Auto 0.4 % (0-4.4); Hematocrit 33.6 % (37.0-47.0); Hemoglobin 10.9 g/dL (12.0-15.0); Immature Granulocyte Absolute 0.08 K/mm3 (0.00-0.031); Immature Granulocyte Percent A 0.6 % (0-0.5); Lymphocytes Absolute Auto 1.81 K/mm3 (0.9-3.2); Lymphocytes Percent Auto 12.5 % (18.3-44.2); Mean Corpuscular HGB Conc 32.4 g/dl (32-36); Mean Corpuscular Hemoglobin 28.4 pg (26-34); Mean Corpuscular Volume 87.5 fl (80-100); Mean Platelet Volume 10.4 fl (7.4-10.4); Monocytes Absolute Auto 0.6 K/mm3 (0.1-0.6); Monocytes Percent Auto 4.3 % (2.6-8.5); Neutrophils Absolute Auto 11.9 K/mm3 (1.3-6.7); Neutrophils Percent Auto 81.9 % (45.5-73.1); Platelet Count Result 231 k/mm3 (150-375); Red Blood Count 3.84 M/mm3 (4.2-5.4); Red Cell Distribution Width 14.4 % (11.5-14.5); White Blood Count 14.5 K/mm3 (4.5-10.0)
--- NOTE | 2021-09-22 07:52 | P.PNOB_ITS ---
OB - PN: Subj Subjective Date/time seen: 09/22/21 07:53 Patient comments: no complaints baby status: doing well OB - PN: Obj Data Labs CBC & Chem 7: 09/22/21 05:03 09/21/21 07:22 Labs: Laboratory Results - last 24 hr 09/21/21 09/22/21 07:22 05:03 WBC 14.5 H RBC 3.84 L Hgb 10.9 L Hct 33.6 L MCV 87.5 MCH 28.4 MCHC 32.4 RDW 14.4 Plt Count 231 MPV 10.4 Immature Gran % (Auto) 0.6 H Neut % (Auto) 81.9 H Lymph % (Auto) 12.5 L [place] % (Auto) 4.3 Eos % (Auto) 0.4 Baso % (Auto) 0.3 Lymph # (Auto) 1.81 [place] # (Auto) 0.6 Eos # (Auto) 0.1 Baso # (Auto) 0.0 Abs Immat Gran (auto) 0.08 H Absolute Neuts (auto) 11.9 H Absolute Nucleated RBC 0.0 Nucleated RBC % 0.0 Blood Type O Positive Antibody Screen Negative OB - PN A/P Plan day: 1 Plan: routine care Time Spent With Patient Time: Total time spent is greater than 50% in coordination of care (as documented) at patient's floor/unit and/or counseling patient: Review of Systems Review of Systems: All systems reviewed & are unremarkable except as noted in HPI and below Exam Narrative: Incision CDI Const: General: cooperative and healthy appearing
[2021-09-22] MEDS: HYDROcodone/acetaminophen (*CRX) 5-325 MG TABLET 1 TAB PO (09:09)
[2021-09-22] MEDS: SIMETHICONE 80 MG TAB.CHEW PO ×2 (09:09→20:53)
[2021-09-22] MEDS: IBUPROFEN 600 MG TABLET PO (09:10)
[2021-09-22] MEDS: DOCUSATE SODIUM 100 MG CAPSULE PO ×2 (09:12→17:38)
[2021-09-22] MEDS: TETANUS,DIPHTHERIA,AC PERTUSSIS ADULT (0.5 ML) BOOSTRIX IM (10:28)
[2021-09-22] MEDS: HYDROcodone/acetaminophen (*CRX) 10-325 MG TABLET 1 TAB PO ×2 (12:45→20:53)
--- NOTE | 2021-09-22 18:09 | WPDANLDPN2 ---
Anes-Prog Note L&D Date/Time: 09/22/21 18:09 Comfortable throughout: section Neuraxial method: spinal Epidural/Spinal procedure site: clean & non-tender Neuro status: Neuro function grossly intact. Cardiovascular status: normal Respiratory status: normal Airway patency: baseline Mental status: baseline Post-Op hydration status: normal Vital Signs: Last Vital Signs Temp 36.4 C L 09/22/21 16:00 Pulse 88 09/22/21 16:00 Resp 18 09/22/21 16:00 BP 134/60 09/22/21 16:00 Pulse Ox 100 09/22/21 16:00 Pain score (VAS): 1 I/O: Intake & Output 09/22/21 09/22/21 09/22/21 07:59 15:59 23:59 Intake Total 1320 600 Output Total 300 950 600 Balance -300 370 0 Post-procedural complaints: none Patient feedback: Patient satisfied with anesthetic care.
[2021-09-23 02:00] VITALS: BP 145/84
[2021-09-23] MEDS: HYDROcodone/acetaminophen (*CRX) 10-325 MG TABLET 1 TAB PO ×2 (02:07→10:49)
[2021-09-23] MEDS: SIMETHICONE 80 MG TAB.CHEW PO ×2 (02:08→10:49)
[2021-09-23 05:04] VITALS: BP 140/88; PULSE 97; RESP 16; TEMP 36.4; O2SAT 100
--- NOTE | 2021-09-23 08:30 | PC.NURSE ---
PT introductions made and plan of care discussed per post op c section, pain management, bottle feeding, daily care activities and pending discharge to home. PT received such instructions per one to one discussion, mom baby care guide and demonstrations this shift Mom sole recipient of such care and no barriers to learning identified. PT verbalized understanding of such care.
[2021-09-23 09:00] VITALS: BP 130/68; PULSE 94; RESP 18; TEMP 36.6; O2SAT 100
[2021-09-23 10:49] VITALS: BP 129/64; PULSE 97; RESP 18; TEMP 36.7; O2SAT 100
[2021-09-23] MEDS: DOCUSATE SODIUM 100 MG CAPSULE PO (10:49)
[2021-09-23] MEDS: IBUPROFEN 600 MG TABLET PO (10:50)
--- NOTE | 2021-09-23 12:41 | PM.OBPNVD ---
OB - PN: Subj Subjective Date/time seen: 09/23/21 12:41 Patient comments: no complaints and pain well controlled baby status: doing well and bottle feeding well [place] feeding status: exclusively bottle feeding Narrative: would like DC today. OB - PN: Obj Data Labs CBC & Chem 7: 09/22/21 05:03 09/21/21 07:22 OB - PN A/P Assessment and Plan (1) PIH ( induced hypertension): Code(s): O13.9 - Gestational [-induced] hypertension without significant proteinuria, unspecified trimester Status: Acute (2) Twin , delivered by section, current hospitalization: Code(s): O30.009 - Twin , unspecified number of placenta and unspecified number of amniotic sacs, unspecified trimester Status: Acute Plan day: 2 Plan: routine care and discharge home Comments: Doing very well. Will have more help at home than here, so she would like DC home. Precautions given. FU 1 week BP and incision check. Time Spent With Patient Time: Total time spent is greater than 50% in coordination of care (as documented) at patient's floor/unit and/or counseling patient: Exam Narrative: NAD abdomen soft, appropriately tender, incision CDI Extremities nontender with 1+ edema
--- NOTE | 2021-09-23 12:47 | PM.DS ---
DS: Admitting Diagnosis Discharge Date 09/23/21 Admitting Diagnosis twin IUP 38w DS: Discharge Diagnosis Discharge Diagnosis (1) Twin , delivered by section, current hospitalization: Code(s): O30.009 - Twin , unspecified number of placenta and unspecified number of amniotic sacs, unspecified trimester Status: Acute DS: Summary Hospital Course Hospital Course: Radu presented for a scheduled CS for twins at 38w also with mild PIH. Delivery and recovery were uncomplicated. SHe was discharged home on POD 2 per her preference. Her BPs were normal. Time Spent with Patient Time attestation: Total time spent providing and/or coordinating discharge services: DS: Data Data Completed and Pending Pending studies at discharge: Pending at discharge 09/21/21 12:52 Surgical [PTH] Routine Discharge Plan Discharge Attending physician on discharge: Hamida Howard Discharging Clinician: Hamida Howard Anticipated Discharge Date/Time: 09/23/21 12:44 Patient Disposition: Home, Self-Care Activity: may shower, may drive after 2 weeks and pelvic rest Diet: regular Wound Care Instructions: incision open to air Discharge Instructions: Education: Mom and Baby Guide Given to: Mother Follow-Up: Call your delivering provider's office for an appointment to be seen in: 1 Week Mom and baby should come to the [facility] for the follow-up appointment. Appointment Date/Time: September 25, 2021 at 9:00 am What to expect at your follow-up visit: Blood Pressure Check Call [phone] if you are unable to keep your appointment time. BREAST CARE: * Wear a snug supportive bra. * For engorgement discomfort: Bottle Feeding: * May apply ice packs ABDOMINAL INCISION: (if applicable) * Allow incision to air dry * Do NOT use lotions for powders on your incision * When showering, allow soap and water to run over the incision, but do not wash incision PERINEAL CARE: * Until bleeding stops, use your taylor bottle after urinating the water * No tub baths until seen by your physician - You may shower * Change your pad frequently throughout the day ACTIVITY: * Rest as much as possible. * Do not exercise or lift anything heavier than your baby (such as laundry or other children.) * Avoid stairs or driving as much as possible. * Do not put anything into the vagina. No douching, tampons, or sexual activity until seen by physician. NOTIFY PHYSICIAN IF YOU HAVE ANY QUESTIONS OR IF ANY OF THE FOLLOWING SYMPTOMS OCCUR: * If your incision becomes red, swollen, or more painful than what you have experienced in the hospital. * If your vaginal bleeding becomes foul smelling. * If your vaginal bleeding becomes more heavy than a period or if your bleeding changes from pink to bright red. However, you may pass an occasional walnut-sized clot once or twice for the first week . * If you experience a sharp, shooting pain in you calves. * If you discover a hard, reddened area on your breast or if you experience flu-like symptoms. * IF you have a fever of 100.4 or greater DIET: * Eat regular, well-balanced meals. * Drink plenty of fluids daily. If , drink to thirst. Patient Instructions: Antibiotic Form Stand Alone Forms: General Discharge Information Follow-up/Referrals: Allison Arroyo MD [Physician] - 1 Week Discharge Medications: New hydrocodone-acetaminophen 5-325 mg Tablet 1 tablet PO Q4-5H PRN (Reason: Moderate Pain (4-6)) Qty: 40 RF: 0 docusate sodium 100 mg Capsule 100 mg PO BID PRN (Reason: Constipation) Qty: 60 RF: 0 ibuprofen 600 mg Tablet 600 mg PO Q6H PRN (Reason: Cramping) Qty: 60 RF: 0 Date of admission: 09/21/21 07:00 Primary Care Provider: PHYSICIAN,CHIEF AIRLINE RADIO OPERATOR Admitting Provider: Allison Arroyo Attending physician on admission: Allison Arroyo Condition: Stable
--- NOTE | 2021-09-23 16:13 | PC.NURSE ---
Discharge instructions for infants and patient were given and discussed with patient. No barriers to learning. Demonstration and return demonstration methods utilized. Patient verbalized understanding and questions answered.
--- NOTE | 2021-09-23 16:18 | PC.NURSE ---
Addendum entered by Tanisha Borjas RN 09/23/21 16:24: Patient left the unit at 1353 via ambulation per patient request. A was strapped in a car seat and carried by patient's relative. Infant B was trapped in a car seat and carried by nurse Addendum entered by Tanisha Borjas RN 09/23/21 16:22: Cord clamp and alarm transponder removed from A and B. Mother verified ID bands on both Infant A and B prior to ID bands removed from the infants' legs. Original Note: Patient left the unit at 1653 via ambulation per patient request. Infant A was strapped in a car seat and carried by patient's relative. B was trapped in a car seat and carried by nurse.
--- NOTE | 2021-09-23 16:26 | PC.NURSE ---
Cord clamp and alarm transponder removed from Infant A and B. Mother verified ID bands prior to bands being removed for slick sheet. Infant A was strapped in a car seat and carried by patient's relative. B was trapped in a car seat and carried by nurse. Patient and her infants left the unit at 1553.
[2021-09-25 08:03] LABS: Rapid Plasma Reagin Non-Reactive (NonReactive)
== END 2021-09-23 15:53 | disposition home or self-care (01) | DRG 540 ==
LOC: ANHOB2 09-23 07:35 → ANHLDR 09-25 10:05 → ANHOB2 09-25 10:05
PROVIDERS: Admitting Provider Obstetrics & Gynecology; Visit Provider Obstetrics & Gynecology
PROC: 10D00Z1 Extraction of Products of Conception, Low, Open Approach (ICD-10-PCS; CPT 59514; principal; 2021-09-21 07:30)
DX: O32.8XX1 Maternal care for other malpresentation of fetus, fetus 1 (principal); O99.214 Obesity complicating childbirth; E66.01 Morbid (severe) obesity due to excess calories; O13.4 Gestational [pregnancy-induced] hypertension without significant proteinuria, complicating childbirth; O30.003 Twin pregnancy, unspecified number of placenta and unspecified number of amniotic sacs, third trimester; Z3A.38 38 weeks gestation of pregnancy; Z37.2 Twins, both liveborn
CPT/HCPCS: 36415; 80053; 84550; 85025; 86592; 86850; 86900; 86901; 88307; 90715; A9270; J0131; J0690; J1885; J2270; J2274; J2370; J2405; J2590; J7120